=== PATIENT | female | born 1935 | race African-American/Black ===

== ENCOUNTER 2018-07-05 09:44 | Emergency (ER) | payer MEDICARE ==
--- NOTE | 2018-07-05 15:09 | RAD REPORT ---
EXAM DESCRIPTION: RAD - Lumbar Spine 3 Views - 07/05/2018 2:40 pm CLINICAL HISTORY: Back pain FINDINGS: The bones are osteoporotic. Mild to moderate compression fracture involves the L1 vertebral body of indeterminate age. If clinica lly indicated MRI could be obtained Minimal anterior subluxation of L2 on L3 Spondylosis
--- NOTE | 2018-07-05 15:15 | ER ---
Nurse's Notes [facility] Name: Penelope Perez Age: 82 yrs Sex: Female : 1935 Arrival Date: 07/05/2018 Time: 09:48 Bed 25 Private MD: Diagnosis: Wedge compression fracture of first lumbar vertebra Presentation: 07/05 10:04 Presenting complaint: Patient states: Lower back pain for the past 2 days. She's been aj1 taking Aleve at home but it hasn't been helping much. Patient reports that she fell while gardening before the pain started. Denies hitting her head during fall. Transition of care: patient was not received from another setting of care. Onset of symptoms was July 03, 2018. Risk Assessment: Do you want to hurt yourself or someone else? Patient reports no desire to harm self or others. Initial Sepsis Screen: Does the patient meet any 2 criteria? No. Patient's initial sepsis screen is negative. Does the patient have a suspected source of infection? No. Patient's initial sepsis screen is negative. Care prior to arrival: None. 10:04 Method Of Arrival: Ambulatory aj 10:04 Acuity: HELEN 4 aj1 Triage Assessment: 10:07 General: Appears in no apparent distress. uncomfortable, Behavior is calm, cooperative, aj1 appropriate for age. Pain: Complains of pain in back Pain currently is 5 out of 10 on a pain scale. Neuro: Level of Consciousness is awake, alert, obeys commands. Cardiovascular: Patient's skin is warm and dry. Respiratory: Airway is patent Respiratory effort is even, unlabored, Respiratory pattern is regular, symmetrical. Historical: - Allergies: 10:07 No Known Allergies; aj1 - Home Meds: 10:07 Clonazepam Oral [Active]; aj1 - PMHx: 10:07 Dementia; aj1 - Immunization history:: Flu vaccine is not up to date. - Social history:: Smoking status: Patient/guardian denies using tobacco. - Ebola Screening: : Patient denies travel to an Ebola-affected area in the 21 days before illness onset. Screenin:25 Abuse screen: Denies threats or abuse. Denies injuries from another. Nutritional ca1 screening: No deficits noted. Tuberculosis screening: No symptoms or risk factors identified. Fall Risk Fall in past 12 months (25 points). Assessment: 12:25 General: Appears in no apparent distress. comfortable, Behavior is calm, cooperative, ca1 appropriate for age. Pain: Complains of pain in low back area Pain does not radiate. Pain currently is 6 out of 10 on a pain scale. Pain began 4 hours ago. Neuro: Level of Consciousness is awake, alert, obeys commands, Oriented to person. Neuro: Reports. Cardiovascular: Heart tones S1 S2 present Capillary refill < 3 seconds Patient's skin is warm and dry. Respiratory: Airway is patent Respiratory effort is even, unlabored, Respiratory pattern is regular, symmetrical, Breath sounds are clear bilaterally. GI: Abdomen is flat, non-distended, Bowel sounds present X 4 quads. Abd is soft and non tender X 4 quads. : No deficits noted. No signs and/or symptoms were reported regarding the genitourinary system. EENT: No deficits noted. No signs and/or symptoms were reported regarding the EENT system. Derm: Skin is intact, is healthy with good turgor, Skin is pink, warm \T\ dry. Musculoskeletal: Circulation, motion, and sensation intact. Capillary refill < 3 seconds. 13:20 Reassessment: Patient appears in no apparent distress at this time. Patient and/or ca1 family updated on plan of care and expected duration. Pain level reassessed. Patient is alert, oriented x 3, equal unlabored respirations, skin warm/dry/pink. 14:20 Reassessment: PT to Xray. ca1 14:45 Reassessment: Patient appears in no apparent distress at this time. Patient is alert, ca1 oriented x 3, equal unlabored respirations, skin warm/dry/pink. 15:20 Reassessment: Patient appears in no apparent distress at this time. Patient is alert, ca1 oriented x 3, equal unlabored respirations, skin warm/dry/pink. Vital Signs: 10:07 BP 129 / 69; Pulse 64; Resp 18; Temp 97.9; Pulse Ox 100% on R/A; Pain 5/10; aj1 12:30 BP 146 / 70; Pulse 59; Resp 18 S; Pulse Ox 100% on R/A; ca1 13:20 BP 152 / 74; Pulse 57; Resp 19 S; Pulse Ox 100% on R/A; ca1 14:45 BP 142 / 73; Pulse 61; Resp 18 S; Pulse Ox 100% on R/A; ca1 15:20 BP 139 / 71; Pulse 63; Resp 18 S; Pulse Ox 100% on R/A; ca1 ED Course: 09:48 Patient arrived in ED. as 10:06 Triage completed. aj1 10:07 Arm band placed on Patient placed in waiting room, Patient notified of wait time. aj1 12:25 Patient has correct armband on for positive identification. Placed in gown. Bed in low ca1 position. Call light in reach. Side rails up X 1. Pulse ox on. NIBP on. Warm blanket given. 12:35 Erika Olea, DAVID is Primary Nurse. ca1 12:46 Morales Howell NP is PHCP. pm1 12:47 Rashad Liang MD is Attending Physician. pm1 14:31 X-ray completed. Patient tolerated procedure well. Patient moved to radiology via stretcher. Patient moved back from radiology. 14:34 Lumbar Spine (3 Views) XRAY In Process Unspecified. EDMS 15:27 No provider procedures requiring assistance completed. Patient did not have IV access rv during this emergency room visit. Administered Medications: No medications were administered Outcome: 15:14 Discharge ordered by MD. pm1 15:27 Discharged to home ambulatory. rv 15:27 Condition: good 15:27 Discharge instructions given to patient, family, Instructed on discharge instructions, follow up and referral plans. medication usage, Demonstrated understanding of instructions, follow-up care, medications, Prescriptions given X 1. 15:28 Patient left the ED. rv Signatures: Dispatcher [employer] EDMS Toña Acuna RN RN aj1 Lani Vila Shannon Morales Howell NP [employer] pm1 Jus Choi RN RN rv Erika Olea RN RN ca1 Corrections: (The following items were deleted from the chart) 13:54 12:50 BP 146 / 70; Pulse 59bpm; Resp 18bpm; Spontaneous; Pulse Ox 100% RA; ca1 ca1
--- NOTE | 2018-07-05 15:15 | EDPHYS ---
Physician Documentation [facility] Name: Penelope Perez Age: 82 yrs Sex: Female : 1935 Arrival Date: 07/05/2018 Time: 09:48 Bed 25 Private MD: ED Physician Rashad Liang HPI: 07/05 14:23 This 82 yrs old Black Female presents to ER via Ambulatory with complaints of Back Pain.pm1 14:23 The patient presents with pain that is acute. The symptoms are located in the lumbar pm1 spine. Onset: The symptoms/episode began/occurred 2 day(s) ago. The pain does not radiate. Associated signs and symptoms: Pertinent negatives: abdominal pain, constipation, dysuria, fever, numbness, tingling, weakness. The problem was sustained during a fall, while standing. Modifying factors: The patient symptoms are alleviated by rest, the patient symptoms are aggravated by movement. Severity of symptoms: in the emergency department the symptoms are unchanged. The patient has not experienced similar symptoms in the past. The patient has not recently seen a physician. Patient was doing yard work and lost her balance reaching for a string. Fell on her back. no headache, head injury, neck pain, LOC. Historical: - Allergies: 10:07 No Known Allergies; aj1 - Home Meds: 10:07 Clonazepam Oral [Active]; aj1 - PMHx: 10:07 Dementia; aj1 - Immunization history:: Flu vaccine is not up to date. - Social history:: Smoking status: Patient/guardian denies using tobacco. - Ebola Screening: : Patient denies travel to an Ebola-affected area in the 21 days before illness onset. ROS: 14:23 Constitutional: Negative for fever, chills, and weight loss, Eyes: Negative for injury, pm1 pain, redness, and discharge, ENT: Negative for injury, pain, and discharge, Neck: Negative for injury, pain, and swelling, Cardiovascular: Negative for chest pain, palpitations, and edema, Respiratory: Negative for shortness of breath, cough, wheezing, and pleuritic chest pain, Abdomen/GI: Negative for abdominal pain, nausea, vomiting, diarrhea, and constipation. 14:23 : Negative for injury, bleeding, discharge, and swelling, MS/Extremity: Negative for injury and deformity, Skin: Negative for injury, rash, and discoloration, Neuro: Negative for headache, weakness, numbness, tingling, and seizure. 14:23 Back: Positive for pain with movement, of the lumbar area, Negative for decreased range of motion. Exam: 14:23 Constitutional: This is a well developed, well nourished patient who is awake, alert, pm1 and in no acute distress. Head/Face: Normocephalic, atraumatic. Eyes: Pupils equal round and reactive to light, extra-ocular motions intact. Lids and lashes normal. Conjunctiva and sclera are non-icteric and not injected. Cornea within normal limits. Periorbital areas with no swelling, redness, or edema. ENT: Nares patent. No nasal discharge, no septal abnormalities noted. Tympanic membranes are normal and external auditory canals are clear. Oropharynx with no redness, swelling, or masses, exudates, or evidence of obstruction, uvula midline. Mucous membranes moist. Neck: Trachea midline, no thyromegaly or masses palpated, and no cervical lymphadenopathy. Supple, full range of motion without nuchal rigidity, or vertebral point tenderness. No Meningismus. Chest/axilla: Normal chest wall appearance and motion. Nontender with no deformity. No lesions are appreciated. Cardiovascular: Regular rate and rhythm with a normal S1 and S2. No gallops, murmurs, or rubs. Normal PMI, no JVD. No pulse deficits. Respiratory: Lungs have equal breath sounds bilaterally, clear to auscultation and percussion. No rales, rhonchi or wheezes noted. No increased work of breathing, no retractions or nasal flaring. Abdomen/GI: Soft, non-tender, with normal bowel sounds. No distension or tympany. No guarding or rebound. No evidence of tenderness throughout. 14:23 Skin: Warm, dry with normal turgor. Normal color with no rashes, no lesions, and no evidence of cellulitis. MS/ Extremity: Pulses equal, no cyanosis. Neurovascular intact. Full, normal range of motion. 14:23 Back: vertebral tenderness, is appreciated at lumbar spine. 14:23 Neuro: Orientation: is normal, Motor: is normal, moves all fours. 14:23 Neuro: patient able to flex and extend bilateral great toes. pm1 Vital Signs: 10:07 BP 129 / 69; Pulse 64; Resp 18; Temp 97.9; Pulse Ox 100% on R/A; Pain 5/10; aj1 12:30 BP 146 / 70; Pulse 59; Resp 18 S; Pulse Ox 100% on R/A; ca1 13:20 BP 152 / 74; Pulse 57; Resp 19 S; Pulse Ox 100% on R/A; ca1 14:45 BP 142 / 73; Pulse 61; Resp 18 S; Pulse Ox 100% on R/A; ca1 15:20 BP 139 / 71; Pulse 63; Resp 18 S; Pulse Ox 100% on R/A; ca1 MDM: 13:09 Patient medically screened. pm1 15:11 Data reviewed: vital signs. Data interpreted: Pulse oximetry: on room air is 100 %. pm1 Interpretation: normal. Counseling: I had a detailed discussion with the patient and/or guardian regarding: the historical points, exam findings, and any diagnostic results supporting the discharge/admit diagnosis, radiology results, the need for outpatient follow up, to return to the emergency department if symptoms worsen or persist or if there are any questions or concerns that arise at home. 07/05 14:00 Order name: Urine Dipstick--Ancillary (enter results) eb 07/05 13:23 Order name: Lumbar Spine (3 Views) XRAY; Complete Time: 15:11 pm1 07/05 13:23 Order name: Urine Dipstick-Ancillary (obtain specimen); Complete Time: 13:36 pm1 Administered Medications: No medications were administered Disposition: 07/05/18 15:14 Discharged to Home. Impression: Wedge compression fracture of first lumbar vertebra. - Condition is Stable. - Discharge Instructions: Spinal Compression Fracture. - Prescriptions for Tramadol 50 mg Oral Tablet - take 1 tablet by ORAL route every 8 hours as needed; 20 tablet. - Medication Reconciliation Form, Thank You Letter, Antibiotic Education, Prescription Opioid Use form. - Follow up: Emergency Department; When: As needed; Reason: Worsening of condition. Follow up: Private Physician; When: 2 - 3 days; Reason: Recheck today's complaints, Continuance of care, Re-evaluation by your physician. - Problem is new. - Symptoms have improved. Addendum: 07/10/2018 10:31 Co-signature as Attending Physician, Rashad Liang MD I agree with the assessment and k dr plan of care. Signatures: Dispatcher [employer] EDToña Jacome RN RN aj1 Rashad Liang MD MD kdr Morales Howell, GUSSET RIPPER GUSSET RIPPER pm1 Jus Choi, RN RN rv Corrections: (The following items were deleted from the chart) 07/05 15:15 15:14 07/05/2018 15:14 Discharged to Home. Impression: Compression fracture L1. pm1 Condition is Stable. Forms are Medication Reconciliation Form, Thank You Letter, Antibiotic Education, Prescription Opioid Use. Follow up: Emergency Department; When: As needed; Reason: Worsening of condition. Follow up: Private Physician; When: 2 - 3 days; Reason: Recheck today's complaints, Continuance of care, Re-evaluation by your physician. Problem is new. Symptoms have improved. pm1 15:28 15:15 07/05/2018 15:14 Discharged to Home. Impression: Wedge compression fracture of rv first lumbar vertebra. Condition is Stable. Discharge Instructions: Spinal Compression Fracture. Forms are Medication Reconciliation Form, Thank You Letter, Antibiotic Education, Prescription Opioid Use. Follow up: Emergency Department; When: As needed; Reason: Worsening of condition. Follow up: Private Physician; When: 2 - 3 days; Reason: Recheck today's complaints, Continuance of care, Re-evaluation by your physician. Problem is new. Symptoms have improved. pm1
[2018-07-05 20:10] LABS: Urine Blood 1+ (NEG); Urine Glucose NEGATIVE (NEG); Urine Protein NEGATIVE (NEG)
== END 2018-07-05 15:28 | disposition home or self-care (01) ==
LOC: ER 09:44
DX: S32.010A Wedge compression fracture of first lumbar vertebra, initial encounter for closed fracture (principal); W18.30XA Fall on same level, unspecified, initial encounter; F03.90 Unspecified dementia, unspecified severity, without behavioral disturbance, psychotic disturbance, mood disturbance, and anxiety
CPT/HCPCS: 72100; 81003; 99283